=== PATIENT | female | born 1965 | race Caucasian/White ===

== ENCOUNTER → 2018-10-21 | Outpatient (CLI) | payer OTHER ==
[2018-10-21 07:17] LABS: POTASSIUM 3.6 mmol/L (3.5-5.1)
== END ==
LOC: M.LAB 01:22
PROVIDERS: Student in an Organized Health Care Education/Training Program
DX: E11.9 Type 2 diabetes mellitus without complications (principal)

== ENCOUNTER 2019-04-11 09:01 | Inpatient (IN) | payer OTHER ==
[~2019-04-11] VITALS: Ht 167.6 cm; Wt 117.9 kg
[2019-04-11 09:06] VITALS: BP 190/77
[2019-04-11] MEDS ORDERED: PRINIVIL20 M1 PO (09:10)
[2019-04-11] MEDS ORDERED: METFORMIN HCL500 MG PO (09:10)
[2019-04-11] MEDS ORDERED: LEXAPRO 10 MG T10 M1 PO (09:10)
[2019-04-11] MEDS ORDERED: HYDROCHLOROTHIA25 M2 PO (09:10)
[2019-04-11 09:37] LABS: ABSOLUTE BASOPHILS 0.1 thou/uL (0.0-0.2); ABSOLUTE LYMPHOCYTES 1.4 thou/uL (0.8-5.3); ABSOLUTE MONOCYTES 0.7 thou/uL (0.0-1.2); ABSOLUTE NEUTROPHILS 8.5 thou/uL (1.6-8.1); BASOPHILS 0.6 %; EOSINOPHILS 0.2 %; HEMOGLOBIN 15.2 gm/dL (12.0-15.0); LYMPHOCYTES 12.8 %; MCHC 33.7 g/dL (28.0-37.0); MONOCYTES 6.6 %; MPV 10.2 fl. (7.2-11.1); NUCLEATED RBCS 0 /100WBC; PLATELET COUNT* 131 thou/uL (150-400); POLYS 79.8 %; RDW-CV 14.4 % (10.5-14.5); WBC 10.7 thou/uL (4.0-11.0)
[2019-04-11 09:48] LABS: ANION GAP 7 mmol/L (7-16); BUN 9 mg/dL (7-18); CALCIUM 8.5 mg/dL (8.5-10.1); CHLORIDE 99 mmol/L (98-107); CO2 30 mmol/L (21-32); CREATININE 0.9 mg/dL (0.6-1.3); GLUCOSE 131 mg/dL (70-99); POTASSIUM 3.6 mmol/L (3.5-5.1); SODIUM 136 mmol/L (136-145)
[2019-04-11 09:51] LABS: APTT 29.5 Seconds (25.0-31.3); INR 1.1; PROTIME 10.8 Seconds (9.20-11.50)
[2019-04-11 10:04] LABS: ALBUMIN 3.4 g/dL (3.4-5.0); ALKALINE PHOSPHATASE 62 U/L (46-116); LIPASE 96 U/L (73-393); MAGNESIUM 1.7 mg/dL (1.8-2.4); NT-PRO BRAIN NAT PEPTIDE 538 pg/mL (<300); SGOT 16 U/L (15-37); SGPT 20 U/L (30-65); TOTAL BILIRUBIN 0.7 mg/dL (<0.1-1.0); TOTAL PROTEIN 7.7 g/dL (6.4-8.2); TROPONIN-I LEVEL <0.06 ng/mL (<0.06)
[2019-04-11 12:15] VITALS: BP 131/57
[2019-04-11 13:01] VITALS: BP 120/59
--- NOTE | 2019-04-11 13:19 | NUR ---
PT ADMITTED TO UNIT WITH HYPOXIA AND PNEUMONIA. PT ALERT AND ORIENTED. PT ON 4 LITERS O2, SAT AT 91%. LUNGS COARSE AND CRACKLY. PULSES 2+. LAST BM YESTERDQY. BOWEL SOUNDS ACTIVE. FALL RISK PRECAUTIONS IN PLACE. HOURLY ROUNDING COMPLETED. WILL CONTINUE TO MONITOR.
[2019-04-11 16:00] VITALS: BP 126/64
--- NOTE | 2019-04-11 16:23 | EKG ---
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: : 1965 Requested By: Kevin Arias Order Number: [id number] MD: Nigel Fregoso Measurements Intervals [place] Rate: 78 P: 62 CT: 157 QRS: -24 QRSD: 83 T: -69 QT: 510 QTc: 582 Interpretive Statements Sinus rhythm Borderline left axis deviation Low voltage, extremity and precordial leads Prolonged QT interval No previous ECG available for comparison Electronically Signed On 04-11-2019 16:22:44 CDT by Nigel Fregoso [email or web address] <ELECTRONICALLY SIGNED> By: Nigel Fregoso MD, [facility] 04/11/19 1622 6 6 Nigel Fregoso MD, [facility] /EPI
--- NOTE | 2019-04-11 17:06 | NUR ---
PT REMAINED ALERT AND ORIENTED. PT RESTING IN ROOM. PT DENIES ANY NEEDS AT THIS TIME. CANNOT ORDER METFORMIN AT THIS TIME DUE TO RECEIVING CONTRAST TODAY. FALL RISK PRECAUTIONS IN PLACE. HOURLY ROUNDING COMPLETED. WILL CONTINUE TO MONITOR.
[2019-04-11 22:03] VITALS: BP 128/48
[2019-04-12 05:35] LABS: HEMATOCRIT 44.4 % (37.0-47.0); HEMOGLOBIN 14.4 gm/dL (12.0-15.0); MCH 30.1 pg (26.0-34.0); MCHC 32.4 g/dL (28.0-37.0); MCV 92.8 fL (80.0-100.0); MPV 10.5 fl. (7.2-11.1); NUCLEATED RBCS 0 /100WBC; PLATELET COUNT* 144 thou/uL (150-400); RBC 4.78 mil/uL (4.20-5.00); RDW-CV 14.2 % (10.5-14.5); WBC 16.9 thou/uL (4.0-11.0)
--- NOTE | 2019-04-12 05:36 | NUR ---
PATIENT REPORTED NO PAIN THROUGHOUT SHIFT ASSESSMENTS. GAVE HER 800 MG MAGNESIUM AND PREDNISONE AND SHE WENT TO SLEEP. SHE SLEPT THROUGH THE NIGHT WITHOUT CALLING. HOURLY ROUNDS MADE. WILL CONTINUE TO MONITOR.
[2019-04-12 06:00] LABS: CALCIUM 8.8 mg/dL (8.5-10.1); CREATININE 1.4 mg/dL (0.6-1.3); POTASSIUM 4.2 mmol/L (3.5-5.1)
[2019-04-12 06:15] LABS: ABSOLUTE LYMPHOCYTES 1.4 thou/uL (0.8-5.3); ABSOLUTE MONOCYTES 0.2 thou/uL (0.0-1.2); ABSOLUTE NEUTROPHILS 15.4 thou/uL (1.6-8.1); PLATELET ESTIMATE ADEQUATE
[2019-04-12 06:16] LABS: ANISOCYTOSIS 1+; POIKILOCYTOSIS 1+; POLYCHROMASIA 1+
[2019-04-12 06:17] LABS: LARGE PLATELETS RARE
[2019-04-12 07:20] VITALS: BP 96/48
[2019-04-12 16:00] VITALS: BP 99/68
--- NOTE | 2019-04-12 16:03 | NUR ---
PT.UP IN CHAIR. ALERT AND ORIENTED. STATED SHE LIVES WITH HER S.O.,ISAAK. 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 NO USE OF DME. NO HOME O2. HOPES TO RETURN HOME WITHOUT O2. CM WILL FOLLOW.
--- NOTE | 2019-04-12 18:14 | NUR ---
PT REMAINED ALERT AND ORIENTED. PT RESTING IN ROOM. PT DENIES ANY PAIN AT THIS TIME. FALL RISK PRECAUTIONS IN PLACE. HYPOGLYCEMIA AND HYPERGLYCEMIA PROTOCOL STARTED, INCREASED INSULIN REGIMENT DOSAGE. HOURLY ROUNDING COMPLETED. WILL CONTINUE TO MONITOR.
[2019-04-12 20:39] VITALS: BP 118/52
--- NOTE | 2019-04-13 05:37 | NUR ---
PATIENT ON 3.5L OF O2 SAT 95%. RESPIRATORY FUNCTION IMPROVING, METFORMIN STILL HELD FROM CONTRAST ADMINISTRATION ON 04/11. STILL HAS STEROIDS AND ABX ORDERED. SHE SLEPT ALL NIGHT AND DID NOT REPORT AND WORSENING OF CONDITION OR ANY PAIN. WILL CONTINUE TO MONITOR.
[2019-04-13 07:50] VITALS: BP 104/47
[2019-04-13 16:00] VITALS: BP 109/41
--- NOTE | 2019-04-13 18:00 | NUR ---
ASSUMED CARE OF PATIENT AT APPROX 0730. ALERT AND ORIENTED X4. ASSESSMENT COMPLETED AND CHARTED. VSS ON 3.5 LITERS. TITRATED 02 DOWN TO 2.5 LITERS WITH 02 SAT OF 95% NOTED UPON THIS MORNINGS ASSESSMENT. RT TITRATED DOWN TO 2 LITERS WITH VITALS REMAINING STABLE. NO COMPLAINTS OF SOA THROUGHOUT SHIFT. BLOOD SUGARS ELEVATED TODAY, GIVEN SS INSULIN AC AND RESTARTED METFORMIN WITH DINNER. PATIENT UP AD SAURAV IN THE ROOM. SHOWERED THIS AFTERNOON. CALL LIGHT WITHIN REACH. HOURLY ROUNDS COMPLETED. WILL CONTINUE TO MONITOR.
[2019-04-13 20:35] VITALS: BP 124/51
[2019-04-14 02:07] LABS: GLYCOHEMOGLOBIN (HGB A1C) 6.5 % (4.8-5.6)
[2019-04-14 03:40] VITALS: BP 116/53
[2019-04-14 03:58] LABS: ABSOLUTE BASOPHILS 0.1 thou/uL (0.0-0.2); ABSOLUTE LYMPHOCYTES 0.8 thou/uL (0.8-5.3); ABSOLUTE MONOCYTES 0.6 thou/uL (0.0-1.2); ABSOLUTE NEUTROPHILS 15.4 thou/uL (1.6-8.1); BASOPHILS 0.3 %; HEMATOCRIT 43.1 % (37.0-47.0); LYMPHOCYTES 4.8 %; MCHC 32.4 g/dL (28.0-37.0); MCV 92.6 fL (80.0-100.0); MONOCYTES 3.6 %; MPV 9.7 fl. (7.2-11.1); NUCLEATED RBCS 0 /100WBC; PLATELET COUNT* 174 thou/uL (150-400); POLYS 91.3 %; RBC 4.66 mil/uL (4.20-5.00); RDW-CV 14.6 % (10.5-14.5); WBC 16.9 thou/uL (4.0-11.0)
[2019-04-14 04:15] LABS: CALCIUM 8.8 mg/dL (8.5-10.1); CREATININE 1.4 mg/dL (0.6-1.3); POTASSIUM 4.5 mmol/L (3.5-5.1)
--- NOTE | 2019-04-14 05:26 | NUR ---
PATIENT HAS REMAINED ALERT AND ORIENTED X 4 THROUGHOUT THE SHIFT AND RESTING AT INTERVALS ON HOURLY ROUNDS. SLEEPING ONLY A FEW HOURS THIS PAST NIGHT. UP INDEPENDENTLY IN THE ROOM WITH O2 ON AT 2L/MIN BY NASAL CANNULA. PATIENT REPORTS FEELING MUCH BETTER. O2 SATS MID 90'S OVERNIGHT. STATED HAD A PERIOD OF COUGH WITH SOME THICK MUCOUS AT BACK OF THROAT FINALLY MOVING. VITAL SIGNS STABLE. CONTINUE TO MONITOR.
[2019-04-14 09:51] VITALS: BP 113/55
[2019-04-14 10:56] VITALS: BP 113/55
[2019-04-14] MEDS ORDERED: PROTONIX40 M1 PO (11:04)
[2019-04-14] MEDS ORDERED: HUMALOG100 UNIT/1 SUBQ (11:05)
[2019-04-14] MEDS ORDERED: MUCINEX600 MG PO (11:07)
[2019-04-14] MEDS ORDERED: VENTOLIN HFA 1818 GM INH (11:08)
[2019-04-14] MEDS ORDERED: PREDNISONE 10 M10 MG PO (11:10)
[2019-04-14] MEDS ORDERED: AUGMENTIN 875-1 EACH PO (11:11)
--- NOTE | 2019-04-14 11:53 | NUR ---
PT DISCHARGED TO HOME WITH NURSING STAFF AND FRIEND AT 1150. IV OUT. DIDN'T REQUIRE HOME O2 PER RT. PAPER SCRIPTS AND CARE NOTES GIVEN. PERSONAL ITEMS SENT WT PT. PT STABLE UPON DISCHARGE.
== END 2019-04-14 11:50 | disposition home or self-care (01) | DRG 177 ==
LOC: M.ERS 09:01 → M.TBA-ER 11:05 → M.ORTHSURG 11:05
PROVIDERS: Family Medicine; ADMIT Internal Medicine
DX: J15.6 Pneumonia due to other Gram-negative bacteria (principal); J96.01 Acute respiratory failure with hypoxia; J44.1 Chronic obstructive pulmonary disease with (acute) exacerbation; Z68.41 Body mass index [BMI] 40.0-44.9, adult; I10 Essential (primary) hypertension; E11.9 Type 2 diabetes mellitus without complications; F17.210 Nicotine dependence, cigarettes, uncomplicated; E66.01 Morbid (severe) obesity due to excess calories; Z79.899 Other long term (current) drug therapy

== ENCOUNTER 2019-07-31 16:26 | Inpatient (IN) | payer OTHER ==
[~2019-07-31] VITALS: Ht 170.2 cm; Wt 127.0 kg
--- NOTE | ~2019-07-31 | PROC ---
[address] [address] PROCEDURE REPORT Name: SHADE DEVINE Room: [address] IN ..#: [id number] Admission: 07/31/19 Attend Phys: Teetee Muse MD Discharge: 08/02/19 Date of : 63 Report #: [id number] THIS REPORT FOR: //name// For GI report, please see the Provation report in Perceptive 7 content. By: [id number] Records Staff PABLO /INGRID
[~2019-07-31 16:26] MED LIST: AUGMENTIN 875-1 EACH PO; HUMALOG100 UNIT/1 SUBQ; HYDROCHLOROTHIA25 M2 PO; LEXAPRO 10 MG T10 M1 PO; METFORMIN HCL500 MG PO; MUCINEX600 MG PO; PREDNISONE 10 M10 MG PO; PRINIVIL20 M1 PO; PROTONIX40 M1 PO; VENTOLIN HFA 1818 GM INH
[2019-07-31 16:31] VITALS: BP 149/76
[2019-07-31 17:05] LABS: ABSOLUTE BASOPHILS 0.1 thou/uL (0.0-0.2); BASOPHILS 0.9 %; HEMOGLOBIN 15.3 gm/dL (12.0-15.0)
[2019-07-31 17:11] LABS: ABSOLUTE EOSINOPHILS 0.1 thou/uL (0.0-0.7); ABSOLUTE LYMPHOCYTES 1.4 thou/uL (0.8-5.3); ABSOLUTE MONOCYTES 0.8 thou/uL (0.0-1.2); ABSOLUTE NEUTROPHILS 7.5 thou/uL (1.6-8.1); HEMATOCRIT 44.3 % (37.0-47.0); LYMPHOCYTES 14.1 %; MCH 31.5 pg (26.0-34.0); MCHC 34.7 g/dL (28.0-37.0); MPV 11.5 fl. (7.2-11.1); NUCLEATED RBCS 0 /100WBC; RBC 4.87 mil/uL (4.20-5.00); RDW-CV 14.6 % (10.5-14.5); WBC 9.8 thou/uL (4.0-11.0)
[2019-07-31 17:12] LABS: CALCIUM 10.3 mg/dL (8.5-10.1); CREATININE 0.8 mg/dL (0.6-1.3)
[2019-07-31 17:14] LABS: INR 0.9; PROTIME 9.6 Seconds (9.20-11.50)
[2019-07-31 17:17] LABS: ALBUMIN 3.6 g/dL (3.4-5.0); TOTAL BILIRUBIN 5.7 mg/dL (<0.1-1.0); TOTAL PROTEIN 8.2 g/dL (6.4-8.2)
[2019-07-31 17:51] LABS: LARGE PLATELETS FEW
[2019-07-31 17:52] LABS: GIANT PLATELETS OCCASIONAL; PLATELET ESTIMATE ADEQUATE
[2019-07-31 17:57] LABS: PLATELET COUNT* 151 thou/uL (150-400)
[2019-07-31 19:32] VITALS: BP 126/53
[2019-07-31 20:00] VITALS: BP 118/42
[2019-07-31 20:32] LABS: CHOLESTEROL 242 mg/dL (<200); HDL CHOLESTEROL 20 mg/dL (>40); LDL CHOLESTEROL 184 mg/dL (<100); TC:HDL 12.1 Ratio (Not establshd); TRIGLYCERIDE 192 mg/dL (<150); VLDL 38 mg/dL (<40)
[2019-07-31 20:38] LABS: SERUM ASSESSMENT Clear
[2019-08-01 05:32] LABS: HEMATOCRIT 40.8 % (37.0-47.0); HEMOGLOBIN 13.9 gm/dL (12.0-15.0); MCH 30.9 pg (26.0-34.0); MCHC 33.9 g/dL (28.0-37.0); MCV 91.2 fL (80.0-100.0); RBC 4.48 mil/uL (4.20-5.00); RDW-CV 14.6 % (10.5-14.5)
[2019-08-01 05:48] LABS: ALBUMIN 2.7 g/dL (3.4-5.0); CALCIUM 8.5 mg/dL (8.5-10.1); CREATININE 0.6 mg/dL (0.6-1.3); MAGNESIUM 1.8 mg/dL (1.8-2.4); POTASSIUM 3.7 mmol/L (3.5-5.1); TOTAL BILIRUBIN 2.8 mg/dL (<0.1-1.0); TOTAL PROTEIN 6.5 g/dL (6.4-8.2)
[2019-08-01 07:34] VITALS: BP 114/57
--- NOTE | 2019-08-01 09:39 | EKG ---
[place] [address] ELECTROCARDIOGRAM REPORT Name: SHADE DEVINE Room: [address] ADM IN [facility].#: [id number] Admission: 07/31/19 Attend Phys: Teetee Muse MD Discharge: Date of : 63 Report #: [id number] THIS REPORT FOR: //name// [facility] ED Test Date: 2019-07-31 Test Time: 16:34:29 Pat Name: SHADE NILSON Department: Room: [facility] Gender: F Caving Guide: MS : 1965 Requested By: Rosalva Lee Order Number: [id number] MD: Bright Nunes Measurements Intervals [place] Rate: 66 P: 50 MO: 167 QRS: -33 QRSD: 94 T: 34 QT: 606 QTc: 636 Interpretive Statements Sinus rhythm Ventricular premature complex Left axis deviation Low voltage, precordial leads Prolonged QT interval Baseline wander in lead(s) I,III,aVL Compared to ECG 04/11/2019 09:17:10 Ventricular premature complex(es) now present Electronically Signed On 08-01-2019 9:39:22 SUPERVISOR CURING ROOM by Bright Nunes [email or web address] <ELECTRONICALLY SIGNED> By: Bright Nunes MD, FACC 08/01/19 0939 1634 1634 Bright Nunes MD, FACC /EPI
[2019-08-01 16:00] VITALS: BP 117/64
[2019-08-01 20:00] VITALS: BP 109/40
[2019-08-02 00:18] VITALS: BP 111/60
[2019-08-02 04:40] VITALS: BP 101/52
[2019-08-02 05:49] LABS: HEMOGLOBIN 12.6 gm/dL (12.0-15.0); MCHC 33.2 g/dL (28.0-37.0); MCV 93.4 fL (80.0-100.0); MPV 11.2 fl. (7.2-11.1); RBC 4.07 mil/uL (4.20-5.00); RDW-CV 14.6 % (10.5-14.5); WBC 9.1 thou/uL (4.0-11.0)
[2019-08-02 06:00] VITALS: BP 107/59
[2019-08-02 06:07] LABS: ALBUMIN 2.6 g/dL (3.4-5.0); CREATININE 0.8 mg/dL (0.6-1.3); TOTAL BILIRUBIN 1.9 mg/dL (<0.1-1.0); TOTAL PROTEIN 6.3 g/dL (6.4-8.2)
[2019-08-02 06:10] LABS: POTASSIUM 4.7 mmol/L (3.5-5.1)
[2019-08-02 07:50] VITALS: BP 116/62
[2019-08-02 09:48] VITALS: BP 116/62
[2019-08-03 07:06] LABS: HEPATITIS B SURFACE AG Negative (Negative)
--- NOTE | 2019-08-07 16:20 | CON ---
[address] [address] CONSULTATION Name: SHADE DEVINE Room: [address]#: [id number] Admission: 07/31/19 Attend Phys: Teetee Muse MD Discharge: 08/02/19 Date of : 63 Report #: [id number] THIS REPORT FOR: //name// CC: Teetee Mari DATE OF SERVICE: 08/01/2019 HISTORY OF PRESENT ILLNESS: This is a pleasant 54-year-old female presents with past medical history of hypertension, hyperlipidemia, is presenting for evaluation of abdominal pain. The patient reports the abdominal pain located in the epigastric region. It is severe localized, nonradiating, associated with nausea and vomiting. The patient reports no other episodes of pain such like this in the past. The patient also denies prior episodes of jaundice or hepatitis. PAST MEDICAL HISTORY: Significant for hypertension, diabetes type 2. PAST SURGICAL HISTORY: Nonsignificant. SOCIAL HISTORY: The patient has a 30-bzje-dekk smoking history. Denies significant alcohol or recreational drug use. FAMILY HISTORY: No family history of colon cancer or Espitia-related neoplasia. REVIEW OF SYSTEMS: A comprehensive 10-point review of systems is negative except for what was mentioned in the HPI. PHYSICAL EXAMINATION: GENERAL: The patient is alert, awake, oriented x 3. VITAL SIGNS: Temperature 36.8, blood pressure 114/57, pulse rate 50, respirations 18. HEENT: Mucous membranes are moist. There is no congestion, mild icterus scleral noted bilaterally. LUNGS: Clear to auscultation bilaterally. CARDIOVASCULAR: Rate and rhythm regular, S1, S2 present. ABDOMEN: Soft. There is mild tenderness in the epigastric and right upper quadrant region. EXTREMITIES: Warm, well perfused. There is no edema. SKIN: Warm and dry. LABORATORY DATA: Hemoglobin 13.9, hematocrit 40.8, platelet count 132, WBC count 7.0. Sodium 140, potassium 3.7, chloride 105, bicarbonate 27, BUN 10, creatinine 0.6, total bilirubin 2.8, AST 64, ALT 173, alkaline phosphatase 136. Lipase on presentation is [address]. [place] [address] CONSULTATION Name: SHADE DEVINE Room: [address]#: [id number] Admission: 07/31/19 Attend Phys: Teetee Muse MD Discharge: 08/02/19 Date of : 63 Report #: [id number] IMAGING: Abdomen and pelvis CT demonstrates numerous large gallstones with possible choledocholithiasis and bile duct dilation, distended gallbladder. ASSESSMENT AND PLAN: Pleasant 54-year-old female presenting with gallstone pancreatitis and choledocholithiasis. Plan would be to proceed with ERCP and will make further recommendations based on the results of the ERCP. <ELECTRONICALLY SIGNED> By: Wm Boykin MD 08/07/19 7771 1540 2106Wm Boykin MD /madie
[2019-08-07] MEDS ORDERED: NORCO 5-325 TA1 EAC1 PO (16:41)
== END 2019-08-02 10:17 | disposition home or self-care (01) | DRG 444 ==
LOC: M.ERS 16:26 → M.ORTHSURG 18:22 → M.TBA-ER 18:22 → M.ORTHSURG 20:00
PROVIDERS: Personal Emergency Response Attendant; ADMIT Internal Medicine
PROC: 0F798ZZ Dilation of Common Bile Duct, Via Natural or Artificial Opening Endoscopic (ICD-10-PCS; principal; 2019-08-01)
DX: K80.42 Calculus of bile duct with acute cholecystitis without obstruction (principal); K85.10 Biliary acute pancreatitis without necrosis or infection; Z68.41 Body mass index [BMI] 40.0-44.9, adult; K75.9 Inflammatory liver disease, unspecified; E66.01 Morbid (severe) obesity due to excess calories; E11.9 Type 2 diabetes mellitus without complications; I10 Essential (primary) hypertension; F17.210 Nicotine dependence, cigarettes, uncomplicated; E78.5 Hyperlipidemia, unspecified; E80.6 Other disorders of bilirubin metabolism; J44.9 Chronic obstructive pulmonary disease, unspecified; Z79.899 Other long term (current) drug therapy; K83.8 Other specified diseases of biliary tract

== ENCOUNTER → 2019-08-07 | Day surgery (SDC) | payer OTHER ==
[~2019-08-07] MED LIST changes: +NORCO 5-325 TA1 EAC1 PO
--- NOTE | ~2019-08-07 | OP ---
[facility] [address] [place] [address] OPERATIVE REPORT Name: SHADE DEVINE Room: [facility]#: [id number] Admission: 08/07/19 Attend Phys: Raj Rodriguez Discharge: Date of : 63 Report #: [id number] THIS REPORT FOR: //name// CC: Raj Mari DATE OF SERVICE: 08/07/2019 PREOPERATIVE DIAGNOSES: Past episode of gallstone pancreatitis, cholelithiasis. POSTOPERATIVE DIAGNOSES: Past episode of gallstone pancreatitis, cholelithiasis. PROCEDURE: This is laparoscopic cholecystectomy with intraoperative cholangiogram. SURGEON: Raj Rodriguez MD ANESTHESIA: General. ESTIMATED BLOOD LOSS: 50 mL. SPECIMEN: Gallbladder. DESCRIPTION OF PROCEDURE: After informed consent was obtained, the patient was brought to the operating room and placed supine. SCDs were placed and working, preoperative antibiotics were administered, general anesthesia was induced. The abdomen was prepped and draped in the usual sterile fashion. A 10 mm incision was made above the umbilicus. Fascia was incised and a trocar was placed. Pneumoperitoneum was established. Three right upper quadrant 5 mm ports were placed. Gallbladder was grasped and retracted cephalad. Infundibulum grasped and retracted laterally. I dissected out the cystic duct and cystic artery. Cystic duct and artery were clipped and ligated. A ductotomy was made in the cystic duct and a cholangiogram catheter was inserted. A cholangiogram was performed. This demonstrated filling of a short cystic duct, common hepatic duct, common bile duct, bifurcation of the hepatics, a smooth flow into the duodenum without filling defects. This was normal. The cholangiogram catheter was removed. The cystic duct was clipped and ligated leaving a clip and a PDS Endoloop on the remaining duct. The cystic artery was clipped and ligated with a clip evaluator. Gallbladder was then taken off the liver bed with electrocautery. It was placed into an Endopouch and removed. The fascia was then closed with a vhiayn-vm-auwuo 0 Vicryl. Skin was closed with 4-0 Monocryl. Incisions were sealed with Dermabond. COMPLICATIONS: [place] [address] OPERATIVE REPORT Name: SHADE DEVINE Room: [facility]#: [id number] Admission: 08/07/19 Attend Phys: Raj Rodriguez Discharge: Date of : 63 Report #: [id number] DISPOSITION: The patient was taken to recovery in satisfactory condition. By: 1606 1918Raj Rodriguez MD /nt
[2019-08-07 14:37] LABS: CALCIUM 8.6 mg/dL (8.5-10.1); CREATININE 0.8 mg/dL (0.6-1.3); POTASSIUM 3.9 mmol/L (3.5-5.1)
[2019-08-07 14:42] LABS: ALBUMIN 3.1 g/dL (3.4-5.0); TOTAL BILIRUBIN 1.1 mg/dL (<0.1-1.0)
--- NOTE | 2019-08-11 02:06 | PATH ---
[address] [address] PATHOLOGY RPT PROCEDURE Name: MARIANA DEVINE Room: [facility].#: [id number] Admission: 08/07/19 Date of : 63 Discharge: Report #: [id number] Path Case #: [id number] [facility] Accession Number: [id number] . 01 Material submitted: . gallbladder - GALLBLADDER . 01 Clinical history: . Cholelithiasis . 02 Diagnosis: "Gallbladder", cholecystectomy: - Acute on chronic cholecystitis. - Adenomyoma. - Cholelithiasis. (CLW:slime; 08/10/2019) MBR 08/10/2019 1359 Local . 02 Electronically signed: . Paige Morales MD, Pathologist NPI- [id number] . 01 Gross description: . The specimen is received in formalin, labeled "Mariana Devine, kaur". Received is a previously opened/disrupted gallbladder measuring 10.8 x 4.1 x 3.7 cm in greatest dimensions displaying a pink-hill, shaggy serosal surface. Opening the specimen reveals a velvety to smooth, light robins mucosa with a gallbladder wall thickness of 0.1 cm. Calculi are present displaying a black and multifaceted appearance, and no masses or lesions are noted grossly. At the fundal aspect, there is a unilocular cystic structure present measuring 0.9 cm filled with a single black calculus. Hadoop Analyst sections, to include the proximal margin and cystic structure, are submitted in cassette A1. (CAA; 08/08/2019) QAC/QAC 08/08/2019 1053 Local . 02 Pathologist provided ICD-10: K80.12 . 02 CPT . 920150 Specimen Comment: A courtesy copy of this report has been sent to [phone], [phone] Specimen Comment: [phone] Specimen Comment: Report sent to / DR BERNABE Performed at: [address], [place] [id number] [place] [address] PATHOLOGY RPT PROCEDURE Name: MARIANA DEVINE [id number] Admission: 08/07/19 Date of : 63 Discharge: Report #: [id number] Path Case #: [id number] MD Dayton Tomlinson MD Phone: [phone] Performed at: 02 [facility] [employer] [facility] Trevor Emerson, BEAU Dhillon [id number] MD Yosvany Benites MD Phone: [phone]
== END | disposition home or self-care (01) ==
LOC: M.SUR 09:04
PROVIDERS: Surgery
DX: K80.12 Calculus of gallbladder with acute and chronic cholecystitis without obstruction (principal); D13.5 Benign neoplasm of extrahepatic bile ducts; J44.9 Chronic obstructive pulmonary disease, unspecified; Z87.19 Personal history of other diseases of the digestive system; Z98.890 Other specified postprocedural states; Z79.899 Other long term (current) drug therapy